=== PATIENT | male | born 1975 | race African-American/Black ===

== ENCOUNTER 2021-09-22 11:05 | Inpatient (IN) | payer OTHER ==
[~2021-09-22] VITALS: Ht 182.9 cm; Wt 124.7 kg
--- NOTE | 2021-09-22 11:29 | NUR ---
PT IS IN ROOM #1B. DR MESSER EVALUATED THE PT.
[2021-09-22 12:05] LABS: HEMATOCRIT 40.4 % (36.7-47.1); MEAN CORPUSCULAR HEMOGLOBIN 26.2 uug (23.8-33.4); PLATELET COUNT (AUTO) 270 K/uL (152-348)
[2021-09-22 12:10] LABS: CREATININE 1.7 mg/dL (0.6-1.3); POTASSIUM 2.9 mmol/L (3.5-5.1)
[2021-09-22 12:25] LABS: BILIRUBIN,TOTAL 0.7 mg/dL (0.2-1.0); TOTAL PROTEIN, SERUM 6.8 g/dL (6.4-8.2)
[2021-09-22] MEDS ORDERED: ASPIRIN 81 MG TAB.CHEW PO ONE (12:30)
[2021-09-22] MEDS ORDERED: POTASSIUM CHLORIDE 20 MEQ TAB.PRT.SR PO ONE ×2 (12:30→17:00)
[2021-09-22] MEDS ORDERED: ASPIRIN 81 MG TAB.CHEW ONE (12:38)
[2021-09-22] MEDS ORDERED: POTASSIUM CHLORIDE 20 MEQ TAB.PRT.SR ONE ×2 (12:41→17:29)
[2021-09-22] MEDS ORDERED: ACETAMINOPHEN ES 500 MG TABLET ONE (12:41)
[2021-09-22] MEDS ORDERED: ACETAMINOPHEN 650 MG/20.3 ML LIQUID UDC PO ONE (13:00)
[2021-09-22] MEDS ORDERED: ACETAMINOPHEN 325 MG TABLET PO ONE (13:00)
[2021-09-22] MEDS ORDERED: MAGNESIUM HYDROXIDE 30 ML LIQUID UDC PO PRN (17:00)
[2021-09-22] MEDS ORDERED: ONDANSETRON 4 MG/2 ML VIAL IV PRN (17:00)
[2021-09-22] MEDS ORDERED: METOPROLOL TARTRATE 50 MG TABLET PO SCH (17:00)
[2021-09-22] MEDS ORDERED: Z GUARD REMEDY PASTE 57 GM TUBE TOP PRN (17:00)
[2021-09-22] MEDS ORDERED: METOPROLOL TARTRATE 50 MG TABLET ONE (17:17)
[2021-09-22] MEDS ORDERED: MORPHINE SULFATE 2 MG/1 ML DISP.SYRIN ONE (17:18)
[2021-09-22] MEDS: MORPHINE SULFATE 2 MG/1 ML DISP.SYRIN IV PRN (17:18)
--- NOTE | 2021-09-22 20:51 | NUR ---
Report received from Donald SANCHEZ . Awake, alert able to make needs known. Requesting dinner.Reports moderate SWEENEY.SCOTTIE CAMACHO notified. Medicated as directed.
[2021-09-22] MEDS ORDERED: CLONIDINE HCL 0.1 MG TABLET ONE (20:52)
--- NOTE | 2021-09-22 20:58 | NUR ---
Tamar srivastava in [facility] - 09/22/21 at 2059 by SANGITA Call [phone] for report Nurse to call back.
[2021-09-22] MEDS ORDERED: CLONIDINE HCL 0.1 MG TABLET PO ONE (21:00)
--- NOTE | 2021-09-22 21:00 | NUR ---
Call [phone] admit to [id number] Tele health safety manager will have RN call back.
--- NOTE | 2021-09-22 21:39 | NUR ---
Report to Vielka SANCHEZ patient to room 327,ambulatory to [facility] with all personel belongings.Reports SWEENEY mild BP 162/96, P 63.
[2021-09-22 21:51] VITALS: BP 170/118
[2021-09-22] MEDS: IV NS 1000 ML 1,000 ML IV PRN (21:59)
--- NOTE | 2021-09-22 21:59 | NUR ---
started patient on normal saline at 75 ml hr , via the right ac heplock no 20 .
--- NOTE | 2021-09-22 22:12 | NUR ---
received patient from ER DX: NSTEMI patient aaox4/maex4.able to stand up from the gurney to the bed ,steady of gait . no respiratory distress noted on room air ,saturation 99% rr 20. denies chest pain when asked ,placed heart monitor SR rate 64, bp was 170/118 via the left upperarm will continue to Monitor as per BEATER BOSS patient was given clonidine 0.3 mg po prior to transfer to the floor. escorted to the bathroom steady of gait voided . asked for something to eat [employer] PERSON got him ,juices and applesauce and pudding . oriented with call pena and advised to call for help or assistance.
[2021-09-23] VITALS (7 sets, daily range): BP systolic 132–164; BP diastolic 66–115
--- NOTE | 2021-09-23 01:20 | NUR ---
rounds made patient in bed sleeping no distress noted breathing even and unlabored .
[2021-09-23] MEDS: ACETAMINOPHEN 325 MG TABLET PO PRN (03:53)
[2021-09-23] MEDS: CLONIDINE HCL 0.1 MG TABLET PO PRN (03:54)
--- NOTE | 2021-09-23 03:59 | NUR ---
prn clonidine given patients bp 164/115 hr 62 Tylenol given c/o headache 07/03.
--- NOTE | 2021-09-23 05:00 | NUR ---
bp rechecked 147/105 ,patient in bed sleeping no s/s of pain . easily arousable after bp taken patient went back to sleep .
--- NOTE | 2021-09-23 07:10 | NUR ---
Received pt. Sleeping intermittently when awake noted to be Alert oriented X4. SBP above 150's medicated as ordered. pt. ambulatory in room air saturation within desired limits. IV access patent.
[2021-09-23 08:20] LABS: HEMATOCRIT 38.9 % (36.7-47.1); MEAN CORPUSCULAR HEMOGLOBIN 26.3 uug (23.8-33.4); MEAN CORPUSCULAR VOLUME 80.8 fL (73.0-96.2); PLATELET COUNT (AUTO) 227 K/uL (152-348)
[2021-09-23 08:40] LABS: CREATININE 1.5 mg/dL (0.6-1.3); MAGNESIUM 2.3 mg/dL (1.8-2.4); PHOSPHOROUS 3.7 mg/dL (2.5-4.9); POTASSIUM 3.7 mmol/L (3.5-5.1)
[2021-09-23] MEDS: ASPIRIN 325 MG TABLET PO SCH (08:48)
[2021-09-23] MEDS: METOPROLOL TARTRATE 25 MG TABLET PO SCH ×2 (08:48→16:00)
[2021-09-23] MEDS: MORPHINE SULFATE 2 MG/1 ML DISP.SYRIN IV PRN ×3 (08:52→23:47)
[2021-09-23] MEDS: IV NS 1000 ML 1,000 ML IV PRN (12:06)
[2021-09-23] MEDS: ISOSORBIDE DINITRATE 20 MG TABLET PO SCH ×2 (12:35→21:13)
[2021-09-23] MEDS: hydrALAZINE HCL 50 MG TABLET PO SCH ×3 (12:36→21:12)
--- NOTE | 2021-09-23 17:47 | NUR ---
Left pt. on bed sleeping easily arousable AAOX4. ambulatory. On sinus rhythm with sbp within desired limits. IV access Hl and patent. Tolerated diet well with no n/v/d. No distress reported or noted. No ski n breakdown. will endorse to incoming shifat.
--- NOTE | 2021-09-23 19:39 | NUR ---
Morphine / eMar / bad headache.
--- NOTE | 2021-09-23 23:47 | NUR ---
Morphine / eMar / bad headache; patient questioned effectiveness of pain medication.
[2021-09-24] VITALS: BP 149/99
[2021-09-24] MEDS: MORPHINE SULFATE 2 MG/1 ML DISP.SYRIN IV PRN ×2 (00:34→00:38)
--- NOTE | 2021-09-24 00:34 | NUR ---
Note to pharmacy: Patient received Morphine 2mg. Then, Doctor was contacted / not effective. Dr increased dose to 4mg q4h PRN starting with extra 4mg now. Thus, patient receive total of (3) 2mg doses / total of 6 mg, now.
[2021-09-24 04:00] VITALS: BP 128/84
[2021-09-24] MEDS: hydrALAZINE HCL 50 MG TABLET PO SCH ×3 (05:34→21:54)
[2021-09-24] MEDS: ACETAMINOPHEN 325 MG TABLET PO PRN ×2 (05:48→21:53)
[2021-09-24] MEDS: ISOSORBIDE DINITRATE 20 MG TABLET PO SCH (08:22)
[2021-09-24] MEDS: ASPIRIN 325 MG TABLET PO SCH (08:22)
[2021-09-24] MEDS: METOPROLOL TARTRATE 25 MG TABLET PO SCH ×2 (08:23→17:21)
[2021-09-24] MEDS: MORPHINE SULFATE 4 MG/1 ML DISP.SYRIN IV PRN (08:41)
--- NOTE | 2021-09-24 09:59 | NUR ---
received in bed awake. no acute distress. c/o headache. no n/v reported. at breakfast well. iv is intact and patent. bed at lowest locked, siderails up x2. call light in reach. will cont to monitor.
[2021-09-24] MEDS: AMLODIPINE 10 MG TABLET PO SCH (11:08)
[2021-09-24 11:26] VITALS: BP 139/83
--- NOTE | 2021-09-24 15:53 | NUR ---
CALLED THE FLOOR FOR RN. RN TO CALL RADIOLOGY WHEN CONTRAST CONSENT FORM IS SIGNED AND FILLED OUT FOR CTA BRAIN.
[2021-09-24 16:00] VITALS: BP 128/71
--- NOTE | 2021-09-24 16:57 | NUR ---
pt requesting for another pain medication, morphine not as effective. informed dr. dickson with new orders noted.
[2021-09-24] MEDS: IBUPROFEN 600 MG TABLET PO PRN (18:13)
--- NOTE | 2021-09-24 18:40 | NUR ---
CALLED 3RD FLOOR FOR CONTRAST CONSENT FORM FOR THE SECOND TIME TO CONTACT TECHNOLOGIST WHEN COMPLETED.
[2021-09-24] MEDS ORDERED: SWABABLE VALVE TRANSFER SET EA MC ONE (19:12)
[2021-09-24] MEDS ORDERED: IV NORMAL SALINE 250 ML IV ONE (19:12)
[2021-09-24] MEDS ORDERED: IOHEXOL 350 100 ML INFUS..BTL ONE (19:12)
--- NOTE | 2021-09-24 19:15 | NUR ---
received patient in bed, A/O x3 just returned from CT, complaining of headache which has been consistent for several days with nothing alleviating the pain. SR on the monitor, on room air, no sob or signs of distress. Patient ambulatory and on bathroom privileges.
[2021-09-24 20:32] VITALS: BP 142/88
[2021-09-25 00:11] VITALS: BP 140/75
[2021-09-25] MEDS ORDERED: MORPHINE SULFATE 4 MG/1 ML DISP.SYRIN IV ONE (00:34)
[2021-09-25] MEDS: MORPHINE SULFATE 4 MG/1 ML DISP.SYRIN IV PRN (01:45)
[2021-09-25] MEDS: IBUPROFEN 600 MG TABLET PO PRN ×4 (01:45→23:27)
[2021-09-25 04:32] VITALS: BP 143/78
[2021-09-25] MEDS: hydrALAZINE HCL 50 MG TABLET PO SCH ×3 (05:52→21:14)
--- NOTE | 2021-09-25 06:18 | NUR ---
Patient remains in stable condition, A/O x3. Patient remains SR on the monitor, BP stable, remains on room air, no SOB or signs of respiratory distress. Patient remains with intractable headache, not receiving much if any relief from pain medication. CT angio of the brain was negative for any aneurysms, bleeding, or any other acute problems. Patient did sleep but was fitful as the pain disturbed his ability to stay asleep.
[2021-09-25] MEDS: METOPROLOL TARTRATE 25 MG TABLET PO SCH ×2 (08:18→17:40)
[2021-09-25] MEDS: ASPIRIN 81 MG TAB.CHEW PO SCH (08:18)
[2021-09-25] MEDS: AMLODIPINE 10 MG TABLET PO SCH (08:18)
--- NOTE | 2021-09-25 08:20 | NUR ---
received awake, alert and oriented x 4, states has severe headache and morphine doesnt help at all- offered ibuprofen and tooki it, ice pack bridgette, tele sr 67, explained plan of care- verbalized understanding, safety measures maintained, call light within reach
[2021-09-25] MEDS ORDERED: ASPIRIN 325 MG TABLET PO SCH (09:00)
[2021-09-25 11:29] VITALS: BP 117/66
--- NOTE | 2021-09-25 14:00 | NUR ---
for lumbar puncture- consent signed
[2021-09-25 15:22] VITALS: BP 163/105
--- NOTE | 2021-09-25 17:00 | NUR ---
lumbar puncture to be done in am per radiology- pt made aware, seen by Dr Hand earlier. dozes on and off, ice pack provided
[2021-09-25] MEDS: CLONIDINE HCL 0.1 MG TABLET PO PRN (17:43)
--- NOTE | 2021-09-25 17:43 | NUR ---
catapres 0.1mg given for BP 176/104 together with metoprolol,also medicated with ibuprofen for headache, needs attended and met, tele consented to be applied again- SR 64, call light within reach
--- NOTE | 2021-09-25 18:49 | NUR ---
resting in no distress, call light within reach, all needs attended and met
--- NOTE | 2021-09-25 19:30 | NUR ---
Received patient in bed. Awake intermittently, oriented x4. Able to make needs known. On RA, no complains of SOB. Still c/o of headache, tolerable at this time. NSR on Tele with hr at 71 per minute. IV site to right AC intact and patent. Safety measures initiated. Call light with in reach.
[2021-09-25 20:00] VITALS: BP 132/101
[2021-09-25] MEDS: ACETAMINOPHEN 325 MG TABLET PO PRN (23:27)
[2021-09-26] VITALS (8 sets, daily range): BP systolic 124–173; BP diastolic 85–105
[2021-09-26] MEDS: CLONIDINE HCL 0.1 MG TABLET PO PRN (00:09)
--- NOTE | 2021-09-26 01:30 | NUR ---
Patient sleeping intermittently, easily arousable. With blood pressure of 167/92, Catapress 0.1mg PO provided. Blood pressure improved to 124/88 at this time.
[2021-09-26] MEDS: hydrALAZINE HCL 50 MG TABLET PO SCH ×3 (05:14→22:44)
--- NOTE | 2021-09-26 06:00 | NUR ---
Patient resting in bed, sleeping intermittently, easily arousable. Complain of headache, Motrin and Tylenol PO administered and effective. Patient remains with high blood pressure. Last B/P at 0510 169/103, Apresoline 100mg administered as ordered with sip of water. Patient is NPO as of midnight in preparation for lumbar puncture. IV to right AC, intact and patent. NSR on Tele, HR 76. Safety measures continued. Call light within reach. Needs assessed and met.
[2021-09-26 07:10] LABS: HEMATOCRIT 46.1 % (36.7-47.1); MEAN CORPUSCULAR HEMOGLOBIN 26.6 uug (23.8-33.4); MEAN CORPUSCULAR VOLUME 79.6 fL (73.0-96.2); PLATELET COUNT (AUTO) 309 K/uL (152-348)
[2021-09-26 07:32] LABS: BILIRUBIN,TOTAL 1.1 mg/dL (0.2-1.0); CREATININE 1.2 mg/dL (0.6-1.3); MAGNESIUM 2.2 mg/dL (1.8-2.4); PHOSPHOROUS 2.7 mg/dL (2.5-4.9); POTASSIUM 3.4 mmol/L (3.5-5.1); TOTAL PROTEIN, SERUM 7.5 g/dL (6.4-8.2)
[2021-09-26] MEDS ORDERED: POTASSIUM CHLORIDE 20 MEQ TAB.PRT.SR PO ONE (08:30)
[2021-09-26] MEDS: ASPIRIN 81 MG TAB.CHEW PO SCH (10:08)
[2021-09-26] MEDS: AMLODIPINE 10 MG TABLET PO SCH (10:09)
[2021-09-26] MEDS: ACETAMINOPHEN 325 MG TABLET PO PRN (10:14)
[2021-09-26] MEDS: IBUPROFEN 600 MG TABLET PO PRN (10:15)
[2021-09-26] MEDS: METOPROLOL TARTRATE 50 MG TABLET PO SCH ×2 (10:15→20:07)
[2021-09-26] MEDS ORDERED: LIDOCAINE HCL 1% 20 ML VIAL ONE (13:06)
[2021-09-26 14:08] LABS: CSF GLUCOSE 62 mg/dL (40-70); CSF PROTEIN 52 mg/dL (15-45)
--- NOTE | 2021-09-26 15:56 | NUR ---
received order from Dr. robbins for imitrex 100mg po x1. noted and carried out.
[2021-09-26] MEDS ORDERED: SUMATRIPTAN SUCCINATE 50 MG TABLET PO ONE (16:00)
--- NOTE | 2021-09-26 17:00 | NUR ---
patient currently sleeping at this time.
--- NOTE | 2021-09-26 20:00 | NUR ---
Received patient in bed. Sleeping intermittently, oriented x4. Easily arousable and able to make needs known. On RA, no complains of SOB. No c/o pain or discomfort at this time. NSR on Tele with hr at 88 per minute. IV site to right AC intact and patent. Blood pressure is 163/105, Cozaar and Lopressor administered as ordered. Safety measures initiated. Call light with in reach.
[2021-09-26] MEDS ORDERED: LOSARTAN POTASSIUM 50 MG TABLET PO SCH (21:00)
[2021-09-27 00:15] VITALS: BP 142/71
[2021-09-27] MEDS: ACETAMINOPHEN 325 MG TABLET PO PRN (02:06)
[2021-09-27] MEDS: IBUPROFEN 600 MG TABLET PO PRN (02:06)
[2021-09-27 04:25] VITALS: BP 149/65
[2021-09-27] MEDS: hydrALAZINE HCL 50 MG TABLET PO SCH ×2 (05:54→14:24)
--- NOTE | 2021-09-27 06:21 | NUR ---
Patient sleeping intermittently and easily arousable this shift. AAO X4. Complain of headache x1, Motrin and Tylenol PO administered and effective. Patient continues to have episodes of high B/P, Routine medications effective but still has high b/p. Awaiting results of lumbar puncture. IV to right AC, intact and patent. NSR on Tele, HR 67. Safety measures continued. Call light within reach. Needs assessed and met.
--- NOTE | 2021-09-27 07:00 | NUR ---
Contraband found in patients room. Contraband given to security.
[2021-09-27 08:30] LABS: *BILIRUBIN,URIN NEGATIVE (NEGATIVE); *BLOOD, URINE NEGATIVE (NEGATIVE); *CLARITY,URINE CLEAR (CLEAR); *COLOR,URINE YELLOW (YELLOW); *KETONES,URINE NEGATIVE (NEGATIVE); *UROBILINOGEN,URINE 0.2 E.U./dl (NORMAL); LEUKOCYTE ESTERASE ,URINE NEGATIVE (NEGATIVE); NITRITE, URINE NEGATIVE (NEGATIVE); UGLUCOSE NEGATIVE (NEGATIVE)
[2021-09-27] MEDS ORDERED: SUMATRIPTAN SUCCINATE 50 MG TABLET PO ONE (09:30)
[2021-09-27] MEDS ORDERED: CLONIDINE-TTS 1 PATCH TD SCH (10:00)
[2021-09-27] MEDS: ASPIRIN 81 MG TAB.CHEW PO SCH (10:04)
[2021-09-27] MEDS: AMLODIPINE 10 MG TABLET PO SCH (10:05)
[2021-09-27] MEDS: METOPROLOL TARTRATE 50 MG TABLET PO SCH (10:05)
[2021-09-27] MEDS: CLONIDINE HCL 0.1 MG TABLET PO PRN (10:06)
--- NOTE | 2021-09-27 10:23 | NUR ---
SW Consult: TETE consult requested for this 46 year old male patient. SW met with patient who presents alert and oriented x4. Patient presents with withdrawn mood and flat affect. Patient was observed laying in bed, guarded, and somewhat disheveled. Patient states he lives in [place], [place] in a house with roommates/friends. Patient states he has no direct family members. Patient did provide his friend, Pradeep Proctor ([phone]) as his emergency contact and stated that Pradeep will be the one to pick him up from the hospital at discharge. Patient denies suicidal or homicidal ideation. Pt denies and substance use. Patient states he brought himself to the hospital due to chronic headaches. Patient shared he does not work and is not on disability. Pt would like to return home upon discharge. SW asked patient if he would need any community resources prior to going home and patient refused. SW will remain available for patient.
[2021-09-27 11:56] VITALS: BP 156/92
[2021-09-27 12:30] LABS: *AMPHETAMINE, URINE POSITIVE (NEGATIVE); *CANNABINOID, URINE NEGATIVE (NEGATIVE); *COCCAINE, URINE NEGATIVE (NEGATIVE); *OPIATE, URINE POSITIVE (NEGATIVE); *PHENCYCLIDINE SCREEN,URINE POSITIVE (NEGATIVE)
--- NOTE | 2021-09-27 15:03 | NUR ---
per adelaida patient is scheduled to have a renal duplex ultrasound 09/28/21. New order to place patient on NPO 09/28 stating at midnight
[2021-09-27 16:17] VITALS: BP 157/95
--- NOTE | 2021-09-27 16:55 | NUR ---
patient states he wants to leave, that he has a family emergency and he cant stay. Explained to patient the risks of leaving against medical advice. patient states he understands the risks but that he has to leave and he will seek medical care after he takes care of his family emergency. Dr. merrill guerrero.
--- NOTE | 2021-09-27 17:00 | NUR ---
patient left floor against medical advice all paperwork signed.
--- NOTE | 2021-09-27 17:16 | NUR ---
ama incident report complete: report number: [id number]
[2021-09-28] MEDS ORDERED: CHLORTHALIDONE 25 MG TABLET PO SCH (09:00)
== END 2021-09-27 17:00 | disposition left against medical advice (07) | DRG 51 ==
LOC: ER 11:05 → TELE3 21:39 → MEDSURG3 09-27 10:41
PROVIDERS: ADMIT Internal Medicine; ATTEND Internal Medicine
PROC: B01BYZZ Fluoroscopy of Spinal Cord using Other Contrast (ICD-10-PCS; principal; 2021-09-26)
PROC: 009U3ZX Drainage of Spinal Canal, Percutaneous Approach, Diagnostic (ICD-10-PCS; principal; 2021-09-26)
DX: A87.9 Viral meningitis, unspecified (principal); N17.0 Acute kidney failure with tubular necrosis; I21.A1 Myocardial infarction type 2; I16.0 Hypertensive urgency; E66.01 Morbid (severe) obesity due to excess calories; Z68.37 Body mass index [BMI] 37.0-37.9, adult; I25.10 Atherosclerotic heart disease of native coronary artery without angina pectoris; Z20.822 Contact with and (suspected) exposure to COVID-19; R55 Syncope and collapse; G47.33 Obstructive sleep apnea (adult) (pediatric); I12.9 Hypertensive chronic kidney disease with stage 1 through stage 4 chronic kidney disease, or unspecified chronic kidney disease; N18.9 Chronic kidney disease, unspecified; R51.9 Headache, unspecified; I25.2 Old myocardial infarction; Z91.19 Patient's noncompliance with other medical treatment and regimen; E87.6 Hypokalemia; R73.03 Prediabetes; R93.1 Abnormal findings on diagnostic imaging of heart and coronary circulation
CPT/HCPCS: 36415; 62270; 70030-TC; 70450; 70496; 71045; 83735; 84100; 84157; 85025; 85610; 87806; 89051; 93005; 93307; A4663; A9150; G0378; J2270; J3490; J7030; J7050; Q9967